=== PATIENT | female | born 1950 | race Caucasian/White ===

== ENCOUNTER 2023-05-22 06:02 | Observation (INO) ==
--- NOTE | 2023-04-30 14:22 | PAT Medication Instructions ---
Medication Instructions Date of Service April 30, 2023 Home Medications Lactobacillus no.[id number]. animalis-inulin 10 billion cell-100 mg capsule (Probiotic-10 (with inulin)) 1 cap PO QAM Vinia 1 cap PO QDL aspirin 81 mg capsule 81 mg PO QAM bimatoprost 0.01 % eye drops (Lumigan) 1 drp ophthalmic (eye) HS budesonide 3 mg capsule,delayed,extended release 9 mg PO QAM PRN colitis flare up cephalexin 250 mg capsule 250 mg PO HS maintenance UTI prevention cholecalciferol (vitamin D3) 50 mcg (2,000 unit) capsule (Vitamin D3) 50 mcg PO QAM clorazepate dipotassium 7.5 mg tablet 3.75 mg PO HS PRN sleep/anxiety coenzyme Q10 100 mg capsule (CoQ-10) 100 mg PO HS lisinopril 5 mg tablet 5 mg PO QAM magnesium oxide 400 mg PO QAM multivitamin 1 tab PO QAM pantoprazole 40 mg tablet,delayed release 40 mg PO HS PRN Heartburn pravastatin 40 mg tablet 40 mg PO HS ASK your prescriber and surgeon aspirin 81 mg capsule 81 mg PO QAM STOP taking 2 weeks before surgery coenzyme Q10 100 mg capsule (CoQ-10) 100 mg PO HS Vinia 1 cap PO QDL DO NOT take the morning of surgery Lactobacillus no.[id number]. animalis-inulin 10 billion cell-100 mg capsule (Probiotic-10 (with inulin)) 1 cap PO QAM cholecalciferol (vitamin D3) 50 mcg (2,000 unit) capsule (Vitamin D3) 50 mcg PO QAM lisinopril 5 mg tablet 5 mg PO QAM magnesium oxide 400 mg PO QAM multivitamin 1 tab PO QAM Take morning of surgery With a small sip of water, OTHERWISE NOTHING TO EAT OR DRINK AFTER MIDNIGHT: budesonide 3 mg capsule,delayed,extended release 9 mg PO QAM PRN colitis flare up (if needed) Take evening before surgery pantoprazole 40 mg tablet,delayed release 40 mg PO HS PRN Heartburn (if needed) pravastatin 40 mg tablet 40 mg PO HS clorazepate dipotassium 7.5 mg tablet 3.75 mg PO HS PRN sleep/anxiety (if needed) cephalexin 250 mg capsule 250 mg PO HS maintenance UTI prevention bimatoprost 0.01 % eye drops (Lumigan) 1 drp ophthalmic (eye) HS Other Notes If you have any questions please call us at [phone] or [phone] or [phone] or [phone]
--- NOTE | 2023-05-08 15:07 | Anesthesiology Consultation ---
Date of Service May 08, 2023 Assessment & Plan (1) Encounter for pre-operative examination: Infectious disease screening: Per assessment on 05/08: No known infectious disease contacts or current infectious disease symptoms. No noted Covid positive test result in past 90 days. Chart Review Chart Review: Acceptable Risk for Surgery and Patient seen in Pre Admission Testing Teaching & Discussion Pre-Anesthesia Teaching/Discussion Notes: Instructed NPO after midnight before surgery,except medications with 15 cc of water. Medication instructions provided according to the PAT guidelines. History Surgery Operation Date: 05/22/23 11:05 Proposed Procedures p C6-C7 Anterior Cervical Discectomy and Fusion - Bj Nicholson DO Height/Weight Height: 5 ft 5 in Weight: 77.5 kg Allergies Allergy/AdvReac Type Severity Reaction Status Date / Time bee venom protein (honey bee) Allergy Severe Anaphylaxis Verified 04/30/23 13:26 No Known Drug Allergies Allergy Verified 04/30/23 13:26 Medications Home Medications Medication Instructions Recorded Confirmed Last Taken Lactobacillus no.[id number]. 1 cap PO QAM 04/30/23 04/30/23 Unknown animalis-inulin 10 billion cell-100 mg capsule (Probiotic-10 (with inulin)) Vinia 1 cap PO QDL 04/30/23 04/30/23 Unknown aspirin 81 mg capsule 81 mg PO QAM 04/30/23 04/30/23 Unknown bimatoprost 0.01 % eye drops 1 drp ophthalmic (eye) HS 04/30/23 04/30/23 Unknown (Lumigan) budesonide 3 mg 9 mg PO QAM PRN colitis flare up 04/30/23 04/30/23 Unknown capsule,delayed,extended release cephalexin 250 mg capsule 250 mg PO HS maintenance UTI 04/30/23 04/30/23 Unknown prevention cholecalciferol (vitamin D3) 50 50 mcg PO QAM 04/30/23 04/30/23 Unknown mcg (2,000 unit) capsule (Vitamin D3) clorazepate dipotassium 7.5 mg 3.75 mg PO HS PRN sleep/anxiety 04/30/23 04/30/23 Unknown tablet coenzyme Q10 100 mg capsule 100 mg PO HS 04/30/23 04/30/23 Unknown (CoQ-10) lisinopril 5 mg tablet 5 mg PO QAM 04/30/23 04/30/23 Unknown magnesium oxide 400 mg PO QAM 04/30/23 04/30/23 Unknown multivitamin 1 tab PO QAM 04/30/23 04/30/23 Unknown pantoprazole 40 mg tablet,delayed 40 mg PO HS PRN Heartburn 04/30/23 04/30/23 Unknown release pravastatin 40 mg tablet 40 mg PO HS 04/30/23 04/30/23 Unknown Andrew'cristo Man 1 cap PO DAILY 05/09/23 Unknown Past Medical History Medical History Anxiety Chronic back pain Chronic diarrhea Chronic neck pain Colitis Hx colitis (? ischemic or lymphocytic), no current issues Takes budesonide PRN flares/diarrhea Frequent UTI Keflex for prevention Glaucoma Heartburn Diet-related Hyperlipidemia Hypertension Osteoporosis Peripheral neuropathy Right hand, pointer finger (chronic numbness) Unsteady gait R/t back issues Exercise / Class Metabolic Activity II 4-5 Yardwork/Stairs/Walk up hill (one FS (no CP, no SOB)) Past Family History Family History Father FHx: early [place], Onset Age: 58 FHx: alcoholism FHx: hypertension Brother FHx: myocardial infarction FHx: hypertension Other Coronary heart disease Past Surgical History Surgical History History of bunionectomy of left great toe History of bunionectomy of right great toe History of cardiac cath Aprroximately 1990s- no stents History of colonoscopy History of esophagogastroduodenoscopy (EGD) S/P LASIK surgery S/P lumbar spinal fusion L3-L5 Past Anesthesia History No Hx of Anesthesia Complications and No Family Hx of Anesthesia Complications History of PONV No Hx of PONV and No Hx of Motion Sickness Social History Smoking Status: Never smoker Do You Dip or Chew Tobacco: No Hx Alcohol Use: No Hx Substance Use: No Review of Systems Patient denies chest pain, shortness of breath, dyspnea on exertion, fever, chills, cough, wheezing, palpitations. Physical Exam Vital Signs VITALS BP 125/85 P 62 TEMP 98.9 SP02 95%RA RESP 16 PHYSICAL Full cervical extension range of motion. Full TMJ range of motion. TMD 3 finger breaths Mallampati Score 1 Dentition: upper partial, + upper front caps Lungs: clear throughout to auscultation Cardiac: regular rate and rhythm, no murmurs noted Spine: normal Carotid arteries: negative bruit Extremities: no LE edema Lab Results Anesthesia Preop Results Results Anesthesia Widget: WBC 6.78 K/ul (4.8-10.8) 05/08/23 Hgb 12.9 g/dl (12.0-16.0) 05/08/23 Hct 37.0 % (37.0-47.0) 05/08/23 Plt 233 K/uL (130-400) 05/08/23 Na 140 mmol/L (136-145) 05/08/23 K 4.0 mmol/L (3.5-5.1) 05/08/23 Cl 108 mmol/L (98-107) H 05/08/23 CO2 25 mmol/L (21-32) 05/08/23 BUN 18 mg/dl (6-23) 05/08/23 Creat 0.95 mg/dl (0.6-1.2) 05/08/23 Glucose Level 88 mg/dl (70-99(Fasting)) 05/08/23 PT 10.5 Seconds (9.0-12.0) 05/08/23 PTT 26.8 Seconds (21.0-31.0) 05/08/23 INR 1.0 (0.9-1.1) 05/08/23 Urine Color Yellow 05/08/23 Urine Appearance Clear (Clear) 05/08/23 Urine pH 7.5 (4.5-7.5) 05/08/23 Urine Specific [place] 1.010 (1.000-1.030) 05/08/23 Urine Protein Negative (Negative) 05/08/23 Urine Glucose (UA) Negative (Negative) 05/08/23 Urine Ketones Negative (Negative) 05/08/23 Urine Blood Negative (Negative) 05/08/23 Urine Nitrite Negative (Negative) 05/08/23 Urine Bilirubin Negative (Negative) 05/08/23 Urine Urobilinogen Negative (Negative) 05/08/23 Urine Leukocyte Esterase Negative (Negative) 05/08/23 Blood Type A Positive 05/08/23 Antibody Screen NEGATIVE 05/08/23 Testing Electrocardiogram Date: 05/08/23 SB at 57bpm. "Otherwise normal ECG" Chest X-Ray Date: 05/08/23 FINDINGS: No lines and tubes are seen. Calcified aortic knob is seen. The lungs are clear. No evidence of pleural effusion or pneumothorax. IMPRESSION: No acute chest disease.
[~2023-05-22 06:02] MED LIST: ACETAMINOPHEN 500 MG TAB PO SCH; CeleBREX 200 MG CAP PO SCH; GABAPENTIN 300 MG CAP PO SCH; LR 15ML/HR IV SCH; LR 60ML/HR IV SCH; ceFAZolin 2000MG 2,000 MG/15 ML SYR IV SCH
[2023-05-22] MEDS ORDERED: ceFAZolin 330 MG/ML 1 GM VIAL ONE (07:02)
[2023-05-22] MEDS ORDERED: fentaNYL citrate PF 100 MCG/2 ML VIAL ONE (07:11)
[2023-05-22] MEDS ORDERED: LIDOCAINE 2% 2 ML VIAL/AMP(20MG/ML) INFIL ONE (07:11)
[2023-05-22] MEDS ORDERED: DEXAMETHASONE SOD INJ 4 MG/ML VIAL ONE (07:11)
[2023-05-22] MEDS ORDERED: ROCURONIUM BROMIDE 10 MG/ML 5 ML VIAL IV ONE (07:11)
[2023-05-22] MEDS ORDERED: MIDAZOLAM HCL 1 MG/ML 2ML VIAL ONE (07:11)
[2023-05-22] MEDS ORDERED: PROPOFOL IV EMULSION 10 MG/ML 20 ML VIAL IV ONE (07:11)
[2023-05-22] MEDS ORDERED: ONDANSETRON INJ 2 MG/ML 2 ML VIAL ONE (07:11)
[2023-05-22] MEDS ORDERED: HYDROmorphone INJ 2 MG/ML SYR/VIAL IV PRN (07:32)
[2023-05-22] MEDS ORDERED: ePHEDrine sulfate 50 MG/ML AMP IV PRN (07:32)
[2023-05-22] MEDS ORDERED: PROMETHAZINE HCL 12.5 MG in SODIUM CHLORIDE 0.9% 50 ML IV PRN ×2 (07:32→10:42)
[2023-05-22] MEDS ORDERED: fentaNYL citrate PF 100 MCG/2 ML VIAL IV PRN (07:32)
[2023-05-22] MEDS ORDERED: ONDANSETRON INJ 2 MG/ML 2 ML VIAL IV PRN ×2 (07:32→10:42)
[2023-05-22] MEDS ORDERED: ATROPINE SULFATE 0.1 MG/ML 10ML SYR IV PRN (07:32)
--- NOTE | 2023-05-22 07:46 | History & Physical Bridge Note ---
Date of Service May 22, 2023 History & Physical Bridge Note I have examined the patient, reviewed the History & Physical and in the interval since the performance of the History & Physical I have noted the following changes of clinical significance: no changes noted
--- NOTE | 2023-05-22 07:48 | History & Physical Report ---
Date of Service May 22, 2023 Assessment & Plan (1) Herniation of cervical intervertebral disc with radiculopathy: Plan: C6-C7 anterior cervical discectomy and fusion History of Present Illness Chief Complaint: Neck and arm pain Primary Care Provider: NO PCP This is a 72-year-old female who presents with chronic persistent neck and arm pain after failing course of nonoperative care is here for surgical invention. Allergies Allergy/AdvReac Type Severity Reaction Status Date / Time bee venom protein (honey bee) Allergy Severe Anaphylaxis Verified 04/30/23 13:26 No Known Drug Allergies Allergy Verified 04/30/23 13:26 Home Medications Medication Instructions Recorded Confirmed Type Lactobacillus no.46-B. 1 cap PO QAM 04/30/23 05/22/23 History animalis-inulin 10 billion cell-100 mg capsule (Probiotic-10 (with inulin)) Vinia 1 cap PO QDL 04/30/23 05/22/23 History aspirin 81 mg capsule 81 mg PO QAM 04/30/23 05/22/23 History bimatoprost 0.01 % eye drops 1 drp ophthalmic (eye) HS 04/30/23 05/22/23 History (Lumigan) budesonide 3 mg 9 mg PO QAM PRN colitis flare up 04/30/23 05/22/23 History capsule,delayed,extended release cephalexin 250 mg capsule 250 mg PO HS maintenance UTI 04/30/23 05/22/23 History prevention cholecalciferol (vitamin D3) 50 50 mcg PO QAM 04/30/23 05/22/23 History mcg (2,000 unit) capsule (Vitamin D3) clorazepate dipotassium 7.5 mg 3.75 mg PO HS PRN sleep/anxiety 04/30/23 05/22/23 History tablet coenzyme Q10 100 mg capsule 100 mg PO HS 04/30/23 05/22/23 History (CoQ-10) lisinopril 5 mg tablet 5 mg PO QAM 04/30/23 05/22/23 History magnesium oxide 400 mg PO QAM 04/30/23 05/22/23 History multivitamin 1 tab PO QAM 04/30/23 05/22/23 History pantoprazole 40 mg tablet,delayed 40 mg PO HS PRN Heartburn 04/30/23 05/22/23 History release pravastatin 40 mg tablet 40 mg PO HS 04/30/23 05/22/23 History Andrew's Man 1 cap PO DAILY 05/09/23 History Past Med/Surg History Medical History Anxiety Chronic back pain Chronic diarrhea Chronic neck pain Colitis Hx colitis (? ischemic or lymphocytic), no current issues Takes budesonide PRN flares/diarrhea Frequent UTI Keflex for prevention Glaucoma Heartburn Diet-related Hyperlipidemia Hypertension Osteoporosis Peripheral neuropathy Right hand, pointer finger (chronic numbness) Unsteady gait R/t back issues Surgical History History of bunionectomy of left great toe History of bunionectomy of right great toe History of cardiac cath Aprroximately - no stents History of colonoscopy History of esophagogastroduodenoscopy (EGD) S/P LASIK surgery S/P lumbar spinal fusion L3-L5 Family History Father FHx: early [place], Onset Age: 58 FHx: alcoholism FHx: hypertension Brother FHx: myocardial infarction FHx: hypertension Other Coronary heart disease Social History Smoking Status: Never smoker Second Hand Exposure: No; Do You Dip or Chew Tobacco: No; Tobacco Cessation Education Requested by Patient: No Hx Alcohol Use: No Hx Substance Use: No Preferred Language: Bengali Communication Ability: Effective Keg Varnisher Required: No Beliefs That Will Affect Care: None Current Living Situation: Spouse Other Information That Helps Us Care for You: No Feels Safe at Home: Yes Safety Concerns: Feels Safe At This Time Assistive Devices: Glasses Physical Exam Physical Exam: Patient is alert and oriented Heart regular rhythm Lungs clear Results & Data Results & Data Vital Signs (Past 12 Hours) Vital Signs Temp Pulse Resp BP Pulse Ox O2 Del Method 05/22/23 06:25 36.8 C 67 18 158/86 H 98 Room Air
[2023-05-22] MEDS ORDERED: FLOSEAL HEMOSTATIC MATRIX 10ML TOP ONE (08:24)
[2023-05-22] MEDS ORDERED: SUGAMMADEX SODIUM 200 MG/2 ML VIAL IV ONE (08:52)
[2023-05-22] MEDS ORDERED: ePHEDrine sulfate 50 MG/ML AMP ONE (08:54)
--- NOTE | 2023-05-22 09:11 | Operative Report ---
Post Operative Report Pre & Post Diagnosis Operation Date: 05/22/23 07:45 Pre-Op Diagnosis: Cervical disc herniation with radiculopathy Post-Op Diagnosis: Same I identified the patient and participated in the time-out.: Yes Procedure Operation Date: 05/22/23 07:45 Actual Procedures #1 anterior cervical discectomy with bilateral foraminotomies C6-C7. #2 anterior cervical arthrodesis C6-7. #3 placement 9 mm Spira filled with I factor C6-C7. #4 application of K2 M plate and screws across C6-C7. Surgeon Bj Nicholson, Delimber Operator My Luna Estimated Blood Loss 10 Findings Consistent with Post-Op Diagnosis Specimens None Indications This is a 72-year-old female presents above-mentioned diagnosis of failed course of nonoperative care she is here for surgical invention. Description of Procedure Patient was met with identified informed consent obtained. Patient was then taken to the operative suite underwent ablation placed in a spine position on the Mat table that [place] sugar reprocess operator head. All bony promises well-padded eyes inspected to ensure no external pressure placed upon the. This point the anterior cervical spine was prepped and draped in normal sterile fashion. The assistance of fluoroscopy notify the C6-C7 disc base and a transverse incision revision was placed along the right anterior aspect of the cervical spine umbilicus region. Blunt dissection with the assistance of bipolar electrocautery is warm down to expose the anterior cervical spine at C6-C7. Still retained retractors placed. Informed complete discectomy of C6-C7 out to the uncovertebral joints bilaterally. [place] distraction pins were utilized to assist in visualization. Removed all posterior annular fibers longitudinal ligament bilateral foraminotomies were performed resting all disc herniation and stenosis. Endplates were to subcortical bleeding bone and 9 mm Spira cage filled with I factor tapped in position. Distracting apparatus was removed and a K2 M plate screws applied with the assistance of fluoroscopy. The incision was then copiously irrigated explored to ensure no damage to distract structures remaining bleeding. 10 round CLARK drain inserted. The incision was then closed with 2 Vicryl in the fascia and 4 Monocryl for final skin closure. Steri-Strips sterile dressing placed. Patient waken taken to PACU in stable condition. Please note spinal cord monitoring visualized at the procedure no changes noted. Lastly My Luna was present at the entire procedure on the patient positioning complex portions of the surgery and final skin closure. I attest to the content of the Intraoperative Record and any orders documented therein. Any exceptions are noted below.
--- NOTE | 2023-05-22 09:35 | Fluoroscopy Report ---
FL cervical 2-3V CLINICAL HISTORY: ACDF C6-C7 COMPARISON STUDY: None. FLUOROSCOPY TIME: 12 seconds. Ka, r: 0.88 mGy FLUOROSCOPIC IMAGES: 2 FINDINGS: Fluoroscopy was provided during C6-C7 anterior discectomy and fusion. Hardware is intact. S urgical drain is in place. Endotracheal tube is partially imaged. IMPRESSION: Fluoroscopy provided during C6-C7 anterior discectomy and fusion. ACT 112: Negative or not required by law. Electronically signed by: Mil Cotton M.D. 05/22/2023 9:34 AM
--- NOTE | 2023-05-22 10:14 | Anesthesiology Progress Note ---
Date of Service May 22, 2023 Anesthesia Post Procedure Vital Signs Vital Signs: Temp Pulse Pulse Resp BP Pulse Ox O2 Del Method 05/22/23 10:05 36.5 C 65 20 162/87 H 94 Room Air 05/22/23 09:35 65 19 164/85 H 97 Oxymask 05/22/23 09:55 36.5 C 69 19 157/73 H 96 Room Air 05/22/23 09:45 67 15 163/85 H 98 Oxymask 05/22/23 09:25 72 17 169/87 H 98 Oxymask 05/22/23 09:15 36.0 C L 83 16 174/78 H 99 Oxymask 05/22/23 06:25 36.8 C 67 18 158/86 H 98 Room Air O2 Flow Rate 05/22/23 10:05 05/22/23 09:35 3 05/22/23 09:55 05/22/23 09:45 2 05/22/23 09:25 5 05/22/23 09:15 7 05/22/23 06:25 Transfer of Care Handoff Completed per policy Notes Mental Status: alert / awake / arousable and participated in evaluation Patient Amnestic to Procedure: Yes Nausea / Vomiting: adequately controlled Pain: adequately controlled Airway Patency, RR, SpO2: stable & adequate BP & HR: stable & adequate Hydration State: stable & adequate Anesthetic Complications: no major complications apparent
[2023-05-22] MEDS ORDERED: RACEPINEPHRINE 2.25% NEBU SOLN 0.5 ML VIAL INH PRN (10:42)
[2023-05-22] MEDS ORDERED: LORazepam 2 MG/1 ML VIAL IV PRN (10:42)
[2023-05-22] MEDS ORDERED: ACETAMINOPHEN 500 MG TAB PO PRN (10:42)
[2023-05-22] MEDS ORDERED: ACETAMINOPHEN 1,000 MG/100 ML VIAL IV PRN (10:42)
[2023-05-22] MEDS ORDERED: ALUMINUM/MAGNESIUM SUSP 30 ML UDC PO PRN (10:42)
[2023-05-22] MEDS ORDERED: hydrOXYzine HCl 25 MG TAB PO PRN (10:42)
[2023-05-22] MEDS ORDERED: HYDROmorphone INJ 1 MG/ML SYRINGE IV PRN (10:42)
[2023-05-22] MEDS ORDERED: FAMOTIDINE 20 MG TAB PO PRN (10:42)
[2023-05-22] MEDS ORDERED: HYDROmorphone INJ 0.5 MG/0.5 ML SYR IV PRN (10:42)
[2023-05-22] MEDS ORDERED: traMADol HCL 50 MG TABLET PO PRN (10:42)
[2023-05-22] MEDS ORDERED: SOD PHOSPHATE/SOD BIPHOSPHATE ENEMA 132 ML BTL PR PRN (10:42)
[2023-05-22] MEDS ORDERED: METOCLOPRAMIDE HCL INJ 5 MG/ML 2 ML VIAL IV PRN (10:42)
[2023-05-22] MEDS ORDERED: bisacodyL 10 MG SUPP PR PRN (10:42)
[2023-05-22] MEDS ORDERED: diphenhydrAMINE Capsule 25 MG CAP PO PRN (10:42)
[2023-05-22] MEDS ORDERED: DO NOT ADMINISTER FLU VACCINE PRN (10:42)
[2023-05-22] MEDS ORDERED: MAGNESIUM HYDROXIDE SUSP 30 ML UDC PO PRN (10:42)
[2023-05-22] MEDS ORDERED: oxyCODONE HCL IR 5 MG TAB (IMMEDIATE RELEASE) PO PRN (10:42)
[2023-05-22] MEDS ORDERED: NALOXONE HCL 0.4 MG/1 ML VIAL/CARP IV PRN (10:42)
[2023-05-22] MEDS ORDERED: LORazepam 0.5 MG TAB PO PRN (10:42)
[2023-05-22] MEDS ORDERED: DO NOT ADMINISTER PNEUMOCOCCAL VACCINE PRN (10:42)
[2023-05-22] MEDS ORDERED: dexAMETHasone 8 MG in SYRINGE 0 ML IV PRN (10:42)
[2023-05-22] MEDS ORDERED: ONDANSETRON 4 MG OD TAB PO PRN (10:42)
[2023-05-22] MEDS ORDERED: PANTOprazole 40 MG TAB PO PRN (10:42)
[2023-05-22] MEDS ORDERED: diazePAM 5 MG TABLET PO PRN (11:21)
[2023-05-22] MEDS: SODIUM CHLORIDE 0.9% 1,000 ML IV SCH ×2 (11:30→22:12)
--- NOTE | 2023-05-22 14:04 | Anesthesiology Progress Note ---
Date of Service May 22, 2023 Anesthesia Post Procedure Vital Signs Vital Signs: Temp Pulse Pulse Resp BP Pulse Ox O2 Del Method 05/22/23 13:33 36.4 C L 66 18 131/73 94 Room Air 05/22/23 12:41 36.8 C 69 18 147/80 H 98 Room Air 05/22/23 11:00 66 16 96 Room Air 05/22/23 11:44 36.3 C L 65 16 157/88 H 94 Room Air 05/22/23 11:13 36.4 C L 64 16 154/91 H 91 Room Air 05/22/23 10:45 36.4 C L 62 16 157/84 H 97 Room Air 05/22/23 10:25 36.4 C L 65 16 153/79 H 96 Room Air 05/22/23 10:35 65 20 152/82 H 96 Room Air 05/22/23 10:15 69 20 151/72 H 96 Room Air 05/22/23 10:05 36.5 C 65 20 162/87 H 94 Room Air 05/22/23 09:35 65 19 164/85 H 97 Oxymask 05/22/23 09:55 36.5 C 69 19 157/73 H 96 Room Air 05/22/23 09:45 67 15 163/85 H 98 Oxymask 05/22/23 09:25 72 17 169/87 H 98 Oxymask 05/22/23 09:15 36.0 C L 83 16 174/78 H 99 Oxymask 05/22/23 06:25 36.8 C 67 18 158/86 H 98 Room Air O2 Flow Rate 05/22/23 13:33 05/22/23 12:41 05/22/23 11:00 05/22/23 11:44 05/22/23 11:13 05/22/23 10:45 05/22/23 10:25 05/22/23 10:35 05/22/23 10:15 05/22/23 10:05 05/22/23 09:35 3 05/22/23 09:55 05/22/23 09:45 2 05/22/23 09:25 5 05/22/23 09:15 7 05/22/23 06:25 Pain Intensity Right Neck: Pain Intensity: 3 Transfer of Care Handoff Completed per policy Notes Mental Status: alert / awake / arousable and participated in evaluation Patient Amnestic to Procedure: Yes Nausea / Vomiting: adequately controlled Pain: adequately controlled Airway Patency, RR, SpO2: stable & adequate BP & HR: stable & adequate Hydration State: stable & adequate Anesthetic Complications: no major complications apparent
[2023-05-22] MEDS: ceFAZolin 2000MG 2,000 MG/15 ML SYR IV SCH ×2 (16:09→22:16)
--- NOTE | 2023-05-22 19:50 | Consultation ---
Date of Consultation May 22, 2023 Assessment & Plan (1) Herniation of cervical intervertebral disc with radiculopathy: (2) Post-operative state: Cervical disc herniation status post anterior cervical discectomy with bilateral foraminotomies, anterior cervical arthrodesis, hardware application by Dr. Nicholson EBL 10 cc POD #0 -pain/wound management per Ortho -CLARK drain management per Ortho -Monitor with continuous pulse ox overnight -VTE prophylaxis per Ortho, encourage early ambulation -incentive spirometry encouraged -CBC, BMP in am -PT/OT and activity restrictions per Ortho (3) Hypertension: Chronic, stable. Continue lisinopril per home regimen (4) Hyperlipidemia: Chronic, stable. Continue pravastatin per home regimen. (5) Glaucoma: Chronic, stable. Continue Lumigan drops nightly in both eyes. (6) Insomnia: Utilizes sleep aids. Diazepam as needed insomnia SCDs/ambulation Full code Dispo-per Ortho, likely to home when medically cleared by Ortho spine I spent a total of 45minutes coordinating, documenting, and providing care for this patient excluding time spent in the performance of separately billed services Mila Childs DO [facility] Hospitalist History of Present Illness Requesting Physician: Bj Nicholson DO Reason for Consultation: post operative medication management Attending Physician: Bj Nicholson DO History of Present Illness 72-year-old female presents with cervical stenosis of the spine status post C- spine laminectomy and fusion today by Dr. Nicholson. Medicine is consulted for postoperative medical management. She is doing well postoperatively with no pain or difficulty breathing. CLARK drain in place anteriorly. Oxygen levels look good on room air. Medical history includes history of lumbar spinal fusion, mixed hyperlipidemia, primary hypertension, history of ischemic colitis, delayed gastric emptying, glaucoma, general anxiety disorder, GERD. Medications reviewed and reconciled. Allergies Allergy/AdvReac Type Severity Reaction Status Date / Time bee venom protein (honey bee) Allergy Severe Anaphylaxis Verified 04/30/23 13:26 No Known Drug Allergies Allergy Verified 04/30/23 13:26 Home Medications Medication Instructions Recorded Confirmed Type Lactobacillus no.[id number]. 1 cap PO QAM 04/30/23 05/22/23 History animalis-inulin 10 billion cell-100 mg capsule (Probiotic-10 (with inulin)) Vinia 1 cap PO QDL 04/30/23 05/22/23 History aspirin 81 mg capsule 81 mg PO QAM 04/30/23 05/22/23 History bimatoprost 0.01 % eye drops 1 drp OPB HS 04/30/23 05/22/23 History (Alvarezigan) budesonide 3 mg 9 mg PO QAM PRN colitis flare up 04/30/23 05/22/23 History capsule,delayed,extended release cephalexin 250 mg capsule 250 mg PO HS maintenance UTI 04/30/23 05/22/23 History prevention cholecalciferol (vitamin D3) 50 50 mcg PO QAM 04/30/23 05/22/23 History mcg (2,000 unit) capsule (Vitamin D3) clorazepate dipotassium 7.5 mg 3.75 mg PO HS PRN sleep/anxiety 04/30/23 05/22/23 History tablet coenzyme Q10 100 mg capsule 100 mg PO HS 04/30/23 05/22/23 History (CoQ-10) lisinopril 5 mg tablet 5 mg PO QAM 04/30/23 05/22/23 History magnesium oxide 400 mg PO QAM 04/30/23 05/22/23 History multivitamin 1 tab PO QAM 04/30/23 05/22/23 History pantoprazole 40 mg tablet,delayed 40 mg PO HS PRN Heartburn 04/30/23 05/22/23 History release pravastatin 40 mg tablet 40 mg PO HS 04/30/23 05/22/23 History Lion's Man 1 cap PO DAILY 05/09/23 05/22/23 History oxycodone 5 mg tablet 5 mg PO Q6H PRN pain #20 tabs 05/22/23 05/22/23 Rx tramadol 50 mg tablet 50 mg PO Q6H PRN pain, moderate 05/22/23 05/22/23 Rx #20 tabs Patient History Medical History (Updated 05/22/23 @ 20:06 by Mila Childs, ) Anxiety Chronic back pain Chronic diarrhea Chronic neck pain Colitis Hx colitis (? ischemic or lymphocytic), no current issues Takes budesonide PRN flares/diarrhea Frequent UTI Keflex for prevention Glaucoma Heartburn Diet-related Hyperlipidemia Hypertension Insomnia Osteoporosis Peripheral neuropathy Right hand, pointer finger (chronic numbness) Unsteady gait R/t back issues Surgical History (Updated 09/19/23 @ 19:49 by Mila Childs DO) History of bunionectomy of left great toe History of bunionectomy of right great toe History of cardiac cath Aprroximately - no stents History of colonoscopy History of esophagogastroduodenoscopy (EGD) S/P LASIK surgery S/P lumbar spinal fusion L3-L5 Family History Father FHx: early ID, Onset Age: 58 FHx: alcoholism FHx: hypertension Brother FHx: myocardial infarction FHx: hypertension Other Coronary heart disease Social History Smoking Status: Never smoker Second Hand Exposure: No; Do You Dip or Chew Tobacco: No; Tobacco Cessation Education Requested by Patient: No Hx Alcohol Use: No Hx Substance Use: No Preferred Language: [place] Communication Ability: Effective Chute Tender Required: No Beliefs That Will Affect Care: None Current Living Situation: Spouse Other Information That Helps Us Care for You: No Feels Safe at Home: Yes Safety Concerns: Feels Safe At This Time Assistive Devices: Glasses Physical Exam Physical Exam: CONSTITUTIONAL: WNWD, vitals as above, generally well-appearing, NAD EYES: normal conjunctivae, no scleral icterus ENT: external ear and nose normal, MMM, anterior CLARK drian in place, C-collar in place. NECK: trachea midline RESPIRATORY: clear to auscultation bilaterally, no crackles, rales or wheezes, normal respiratory effort CARDIOVASCULAR: regular rate and rhythm, S1 and 2 heard without murmurs, gallops or rubs, no JVD, no peripheral edema CHEST: inspection of chest was normal GASTROINTESTINAL: soft, nontender, ND, no guarding MUSCULOSKELETAL: strength 5/5 throughout, head is normocephalic and atraumatic SKIN: warm and dry, NEUROLOGIC: CN 2-12 grossly intact, no sensory deficit, normal cognition, normal speech, no tremor PSYCHIATRIC: alert cooperative and oriented to person, place and time. Results & Data Vital Signs (Past 12 Hours) Vital Signs Temp Pulse Pulse Resp BP Pulse Ox O2 Del Method 05/22/23 19:05 70 18 96 Room Air 05/22/23 17:26 36.7 C 78 18 127/78 94 Room Air 05/22/23 15:00 68 18 95 Room Air 05/22/23 15:40 36.4 C L 65 17 145/82 H 92 Room Air 05/22/23 13:33 36.4 C L 66 18 131/73 94 Room Air 05/22/23 12:41 36.8 C 69 18 147/80 H 98 Room Air 05/22/23 11:00 66 16 96 Room Air 05/22/23 11:44 36.3 C L 65 16 157/88 H 94 Room Air 05/22/23 11:13 36.4 C L 64 16 154/91 H 91 Room Air 05/22/23 10:45 36.4 C L 62 16 157/84 H 97 Room Air 05/22/23 10:25 36.4 C L 65 16 153/79 H 96 Room Air 05/22/23 10:35 65 20 152/82 H 96 Room Air 05/22/23 10:15 69 20 151/72 H 96 Room Air 05/22/23 10:05 36.5 C 65 20 162/87 H 94 Room Air 05/22/23 09:35 65 19 164/85 H 97 Oxymask 05/22/23 09:55 36.5 C 69 19 157/73 H 96 Room Air 05/22/23 09:45 67 15 163/85 H 98 Oxymask 05/22/23 09:25 72 17 169/87 H 98 Oxymask 05/22/23 09:15 36.0 C L 83 16 174/78 H 99 Oxymask O2 Flow Rate 05/22/23 19:05 05/22/23 17:26 05/22/23 15:00 05/22/23 15:40 05/22/23 13:33 05/22/23 12:41 05/22/23 11:00 05/22/23 11:44 05/22/23 11:13 05/22/23 10:45 05/22/23 10:25 05/22/23 10:35 05/22/23 10:15 05/22/23 10:05 05/22/23 09:35 3 05/22/23 09:55 05/22/23 09:45 2 05/22/23 09:25 5 05/22/23 09:15 7 Diagnostic Findings Cervical Spine X-Ray 05/22/23 07:45 FL cervical 2-3V CLINICAL HISTORY: ACDF C6-C7 COMPARISON STUDY: None. FLUOROSCOPY TIME: 12 seconds. Ka, r: 0.88 mGy FLUOROSCOPIC IMAGES: 2 FINDINGS: Fluoroscopy was provided during C6-C7 anterior discectomy and fusion. Hardware is intact. Surgical drain is in place. Endotracheal tube is partially imaged. IMPRESSION: Fluoroscopy provided during C6-C7 anterior discectomy and fusion. ACT 112: Negative or not required by law. Electronically signed by: Mil Cotton M.D. 05/22/2023 9:34 AM Medications Administered Current Inpatient Medications Acetaminophen (Acetaminophen 500 Mg Tab) 1,000 mg PO Q8H PRN PRN Reason: MILD Pain Scale 1,2,3 & Pre PT Stop: 06/21/23 10:41 Al Hydrox/Mg Hydrox/Simethicone (Aluminum/Magnesium Susp 30 Ml Udc) 30 ml PO Q6H PRN PRN Reason: Dyspepsia Stop: 06/21/23 10:41 Aspirin (Aspirin 81 Mg Ectab) 81 mg PO QAM ALCON Stop: 06/22/23 08:59 Bimatoprost (Bimatoprost 0.01% Op Soln 2.5 Ml Btl) 1 drops OP HS ALCON Stop: 06/21/23 20:59 Bisacodyl (Bisacodyl 10 Mg Supp) 10 mg CO DAILY PRN PRN Reason: Constipation Stop: 06/21/23 10:41 Diazepam (Diazepam 5 Mg Tablet) 2.5 mg PO HS PRN PRN Reason: sleep/anxiety Stop: 06/21/23 11:20 Diphenhydramine HCl (Diphenhydramine Capsule 25 Mg Cap) 25 mg PO Q6H PRN PRN Reason: Allergic Rhinitis/Insomnia Stop: 06/21/23 10:41 Epinephrine (Racepinephrine 2.25% Nebu Soln 0.5 Ml Vial) 0.5 ml INH NOW PRN PRN Reason: If stridor present Famotidine (Famotidine 20 Mg Tab) 20 mg PO Q12H PRN PRN Reason: Dyspepsia Stop: 06/21/23 10:41 Hydromorphone HCl (Hydromorphone Inj 0.5 Mg/0.5 Ml Syr) 0.5 mg IV Q3H PRN PRN Reason: MODERATE Pain (Scale 4,5,6) & Pre PT Stop: 06/05/23 10:41 Hydromorphone HCl (Hydromorphone Inj 1 Mg/Ml Syringe) 1 mg IV Q3H PRN PRN Reason: SEVERE Pain (Scale 7,8,9,10) Stop: 06/05/23 10:41 Hydroxyzine HCl (Hydroxyzine Hcl 25 Mg Tab) 25 mg PO Q8H PRN PRN Reason: Anxiety Stop: 06/21/23 10:41 Lactated Ringer's (Lr) 1,000 mls @ 15 mls/hr IV .Q24H ALCON Stop: 05/23/23 05:59 Last Infusion: 05/22/23 07:53 Dose: Infused Lactated Ringer's (Lr) 1,000 mls @ 60 mls/hr IV .[id number] [facility] Stop: 05/22/23 22:39 Last Admin: 05/22/23 12:54 Dose: Not Given Dexamethasone 8 mg/ Syringe 2 mls @ 1 mls/min IV NOW PRN PRN Reason: If stridor present Sodium Chloride (Nss) 1,000 mls @ 100 mls/hr IV .Q10H [facility] Stop: 06/21/23 10:41 Last Admin: 05/22/23 11:30 Dose: 100 mls/hr Promethazine HCl 12.5 mg/ (Sodium Chloride) 50.5 mls @ 202 mls/hr IV Q6H PRN PRN Reason: Nausea &/or Vomiting Stop: 06/21/23 10:41 Acetaminophen (Ofirmev) 1,000 mg in 100 mls @ 400 mls/hr IV Q8H PRN PRN Reason: Pain Rating 1-3 & Pre PT Stop: 05/23/23 10:42 Cefazolin Sodium (Ancef 2000mg) 2,000 mg in 15 mls @ 3.75 mls/min IV Q8H ALCON; Protocol Stop: 05/22/23 23:18 Last Admin: 05/22/23 16:09 Dose: 3.75 mls/min Dexamethasone 6 mg/ Syringe 1.5 mls @ 1 mls/min IV DAILY [facility]CON Stop: 05/25/23 09:02 Influenza Virus Vaccine Quadrival (Do Not Administer Flu Vaccine) 1 each N/A PRN PRN PRN Reason: Notification Stop: 06/21/23 10:41 Lactobacillus Acidophilus (Advanced Probiotic 1250 Mg Capsule) [facility] [place] [facility]: 06/22/23 08:59 Lisinopril (Lisinopril 5 Mg Tab) 5 mg PO QAM [facility] Stop: 06/22/23 08:59 Lorazepam (Lorazepam 0.5 Mg Tab) 0.5 mg PO Q8H PRN PRN Reason: Sedation/Anxiety Stop: 06/21/23 10:41 Lorazepam (Lorazepam 2 Mg/1 Ml Vial) 0.5 mg IV Q8H PRN PRN Reason: Sedation/Anxiety Stop: 06/21/23 10:41 Magnesium Hydroxide (Magnesium Hydroxide Susp 30 Ml Udc) 30 ml PO Q24H PRN PRN Reason: Constipation Stop: 06/21/23 10:41 Magnesium Oxide (Magnesium Oxide 400 Mg Tab) [facility] [place] Stop: 06/22/23 08:59 Metoclopramide HCl (Metoclopramide Hcl Inj 5 Mg/Ml 2 Ml Vial) 10 mg IV Q6H PRN PRN Reason: Nausea &/or Vomiting Stop: 06/21/23 10:41 Multivitamins (Multivitamin Tab) 1 tab PO [facility] Stop: 06/22/23 08:59 Naloxone HCl (Naloxone Hcl 0.4 Mg/1 Ml Vial/Carp) 0.1 mg IV Q5M PRN PRN Reason: Oversedation/Resp depression Stop: 06/21/23 10:41 Ondansetron HCl (Ondansetron Inj 2 Mg/Ml 2 Ml Vial) 4 mg IV Q6H PRN PRN Reason: Nausea &/or Vomiting Stop: 06/21/23 10:41 Ondansetron HCl (Ondansetron 4 Mg Od Tab) 4 mg PO Q6H PRN PRN Reason: Nausea Stop: 06/21/23 10:41 Oxycodone HCl (Oxycodone Hcl Ir 5 Mg Tab (Immediate Release)) 5 - 10 mg PO Q4H PRN PRN Reason: Pain & Pre PT Stop: 06/05/23 10:41 Pantoprazole Sodium (Pantoprazole 40 Mg Tab) 40 mg PO HS PRN PRN Reason: Heartburn Stop: 06/21/23 10:41 Pneumococcal Polyvalent Vaccine (Do Not Administer Pneumococcal Vaccine) 1 each N/A PRN PRN PRN Reason: Notification Stop: 06/21/23 10:41 Polyethylene Glycol (Polyethylene (Miralax) 17 Gm Pack) 17 gm PO Q6 [facility] Stop: 06/22/23 05:59 Pravastatin Sodium (Pravastatin Sod 40 Mg Tab) 40 mg PO HS [facility]CON Stop: 06/21/23 20:59 Senna/Docusate Sodium (Docusate Sodium/Senna 50/8.6mg Tab) 2 tab PO HS ALCON Stop: 06/21/23 20:59 Sodium Biphosphate/Sodium Phosphate (Sod Phosphate/Sod Biphosphate Enema 132 Ml Btl) 132 ml CO ONE PRN PRN Reason: Constipation Stop: 06/21/23 10:41 Tramadol HCl (Tramadol Hcl 50 Mg Tablet) 50 - 100 mg PO Q4H PRN PRN Reason: Moderate-Severe pain & Pre PT Stop: 06/21/23 10:41 Vitamin D (Cholecalciferol 1,000 Units 25 Mcg Tab) 2,000 units PO QAM ALCON Stop: 06/22/23 08:59
[2023-05-22] MEDS ORDERED: DOCUSATE SODIUM/SENNA 50/8.6MG TAB PO SCH (21:00)
[2023-05-22] MEDS ORDERED: PRAVASTATIN SOD 40 MG TAB PO SCH (21:00)
[2023-05-22] MEDS ORDERED: NON-FORMULARY MEDICATION (Coenzyme Q10 [Coq-10] 100 mg Capsule) PO SCH (21:00)
[2023-05-22] MEDS ORDERED: BIMATOPROST 0.01% OP SOLN 2.5 ML BTL OP SCH (21:00)
[2023-05-23] MEDS: POLYETHYLENE (MIRALAX) 17 GM PACK PO SCH ×2 (06:33→11:59)
[2023-05-23 07:34] LABS: Hematocrit (blood only) 35.5 % (37.0-47.0); Hemoglobin 12.1 g/dl (12.0-16.0); Mean Corpuscular Hemoglobin 32.4 pg (25.0-34.0); Mean Corpuscular Hgb Conc 34.1 g/dL (32.0-36.0); Mean Corpuscular Volume 95.2 fL (80.0-100.0); Mean Platelet Volume 11.3 fL (9.4-12.4); Platelet Count 188 K/uL (130-400); RDW Coefficient of Variation 14.5 % (11.5-14.5); RDW Standard Deviation 49.9 fL (36.4-46.3); Red Blood Count 3.73 M/uL (4.20-5.40); White Blood Count 11.94 K/ul (4.8-10.8)
[2023-05-23 07:55] LABS: BUN Creatinine Ratio 13.2 (10-20); Calcium 9.3 mg/dl (8.6-10.3); Creatinine Clr Calc Pharmacy 66.8 ml/min; Est GFR (African American) 89.6 ml/min; Est GFR (Non-African American) 77.3 ml/min; Potassium 4.1 mmol/L (3.5-5.1)
--- NOTE | 2023-05-23 08:37 | Discharge Summary ---
Date of Service May 23, 2023 Admission HPI Per Admitting Provider This is a 72-year-old female who presents with chronic persistent neck and arm pain after failing course of nonoperative care is here for surgical invention. Admission Exam (Per Admitting) Constitutional WD/WN, vitals as above Eyes normal visual dee by confrontation ENMT external ear and nose normal, oropharynx normal Neck normal visual inspection Respiratory normal respiratory effort Cardiovascular Extremities: normal capillary refill Gastrointestinal (Abdomen) Inspection/Auscultation: abdomen normal to inspection Musculoskeletal Spine: + limited cervical ROM and + Lhermitte's sign positive Skin normal turgor Neurologic normal touch/pain/proprioception and moves all extremities Psychiatric A+Ox3, euthymic affect Eye Contact: good eye contact Discharge Data Consultations 05/22/23 10:42 Consult Hospitalist Routine Procedures Performed Operation Date: 05/22/23 07:45 Actual Procedures p C6-C7 Anterior Cervical Discectomy and Fusion, Spinal Cord Monitoring(Not Applicable) - Bj Nicholson DO Hospital Course (1) Herniation of cervical intervertebral disc with radiculopathy: Jaki underwent ACDF C6-[address] Nicholson on May 22. She had an uneventful hospital stay. She is being discharged home with her on May 23. Arm symptoms have resolved. She is up and ambulatory around the hallways. Denies any dysphonia or dysphagia. Tolerating a soft diet. CLARK drain output in the past 20 hours has been a total of 30 cc. Voiding without issue. Discharge Instructions ACTIVITY RECOMMENDATIONS: SELF CARE INSTRUCTIONS AFTER CERVICAL FUSIONS 1. No smoking. Smoking drastically decreases the chance of a solid fusion. 2. No bending, lifting more than 5 pounds, or twisting (roll like a log when turning in bed). 3. You may shower 3 days after surgery. Thoroughly dry wound. Do not soak in the tub. 4. Cervical collar: Must be worn at all times including sleeping. You may remove the brace only to bath, eat and if you are sitting in a recliner. 5. Please walk as much as you can for exercise. Gradually increase the distance that you walk as your endurance increases. SPECIAL CARE INSTRUCTIONS: VERY IMPORTANT TO READ AND REVIEW A. Do not take any anti-inflammatory medications (i.e. Indocin, Advil, Aspirin, Naprosyn, Aleve, Motrin, etc.) as these may inhibit the chance of a solid fusion. Tylenol is okay to take. B. Your surgical incision has been closed with a cosmetic suture under the skin that will dissolve in about 6 weeks. In 14 days, you can use a pair of clean scissors and cut the suture that is left outside of the skin at the ends of your incision. C. Complications are uncommon, but please contact us if you have any signs or symptoms of: 1. wound infection (fever higher than 102.5 degrees F, redness, separation of wound, drainage, or increasing pain from the incision) 2. blood clots in legs (pain, swelling, redness and warmth in legs) 3. urinary tract infection (fever higher than 102.5 degrees, burning upon urination or increased frequency of urination) 4. nerve problems (inability to walk on your toes or heels, numbness, loss of bowel or bladder control) 5. any other symptoms that concern you. D. Please call the office at if you have any concerns or questions about your operation or recovery. MANAGING PAIN AFTER SPINAL SURGERY 1. Narcotic medication is intended for short-term use and will be provided for surgical pain. Surgical pain usually lasts for a period of 4-6 weeks. Narcotic medication includes Percocet, Vicodin, Darvocet, Tylenol #3 or Lortab. 2. Longer-term pain is more appropriately treated with non-narcotic medication such as Tylenol ES. 3. Muscle spasm is not appropriately treated with narcotics. Muscle relaxers such as Soma, Flexeril or Skelaxin can be used along with Tylenol ES. 4. Remember that we all live with some "aches and pains". This is not unusual or uncommon after an injury or as we get older. 5. We will provide appropriate medication within the normal guidelines of their prescribed use. We will also be very cautious and aware of potential abuse and extended duration of patients' medication needs. 6. Please allow 2-3 days to process refills. Prescriptions will not be mailed but must be picked up at the office. FOLLOW UP VISIT: Keep your scheduled follow-up appointment. Any questions, please call the office at .
[2023-05-23] MEDS ORDERED: ADVANCED PROBIOTIC 1250 MG CAPSULE PO SCH (09:00)
[2023-05-23] MEDS ORDERED: ASPIRIN 81 MG ECTAB PO SCH (09:00)
[2023-05-23] MEDS ORDERED: MAGNESIUM OXIDE 400 MG TAB PO SCH (09:00)
[2023-05-23] MEDS ORDERED: dexAMETHasone 6 MG in SYRINGE 0 ML IV SCH (09:00)
[2023-05-23] MEDS ORDERED: CHOLECALCIFEROL 1,000 UNITS 25 MCG TAB PO SCH (09:00)
[2023-05-23] MEDS ORDERED: lisinopril 5 MG TAB PO SCH (09:00)
[2023-05-23] MEDS ORDERED: MULTIVITAMIN TAB PO SCH (09:00)
[2023-05-23] MEDS ORDERED: PANTOprazole 40 MG TAB PO SCH (09:00)
[2023-05-23] MEDS: SODIUM CHLORIDE 0.9% 1,000 ML IV SCH (09:12)
== END 2023-05-23 13:15 | disposition home or self-care (01) | DRG 473 ==
LOC: ASU 06:02 → INTOOBSV 09:14 → 3E 09:14